=== PATIENT | female | born 1945 | race Caucasian/White ===

== ENCOUNTER → 2025-06-14 10:18 | Outpatient (CLI) | payer MEDICARE, MEDICAID, SELFPAY ==
--- NOTE | 2025-06-14 10:27 | DI.ECHO.S_ITS ---
[facility] : : [id number] : : [place] : : [id number] : : Phone: [phone] Echocardiogram Report + + :Name: BEBETO FRANCE Study Date: 06/14/2025 Height: 61 in : :[facility] ReadingLocation: Weight: 170 lb : : Gender: Female BSA: 1.8 m2 : :: 1945 Age: 80 yrs BP: 107/78 mmHg: :Reason For Study: LOZANO : :Ordering Physician: ABIGAIL, : :FATOU Performed By: Homer Chris : :Referring: FATOU HAYES : + + Interpretation Summary Afib with variable rate 98-116 bpm. Normal LV size and wall thickness; global hypokinesis. EF is 40-45%. Moderate LA enlargement and mild RA enlargement. MV is s/p mitral clip. Moderate mitral regurgitation. Compared to prior echo at [facility] 08/19/2025 no changes have occurred. Procedure: A two-dimensional transthoracic echocardiogram with color flow and Doppler was performed. The study quality was technically adequate. There is no prior echocardiogram noted for this patient. The heart rate ranged between 98-116 bpm during the study. Left Ventricle: The left ventricle is normal in size. Left ventricular wall thickness is mildly increased. Beat to beat variability due to arrhythmia. The ejection fraction is estimated to be 40-45%. Diastolic function is indeterminate. Right Ventricle: The right ventricle is mildly dilated. Right ventricular systolic function is mildly reduced. Atria: The left atrium is moderately dilated. The right atrium is mildly dilated. There is no Doppler evidence for an interatrial shunt. Mitral Valve: There is mild mitral annular calcification. MV Clip present with a mean gradient documented of 4.02 mmHg at a heart rate of 99 BPM. There is moderate mitral regurgitation. Aortic Valve: The aortic valve is trileaflet. The aortic valve opens well. There is mild aortic valve sclerosis. There is no hemodynamically significant valvular aortic stenosis. No aortic regurgitation is present. Tricuspid Valve: The tricuspid valve is not well visualized, but is grossly normal. There is trace tricuspid regurgitation. Pulmonary artery pressures cannot be estimated because of the lack of a measurable TR jet velocity but the IVC suggests a CVP of around 3 mmHg. Pulmonic Valve: The pulmonic valve is not well seen, but is grossly normal. There is mild to moderate pulmonic regurgitation. Great Vessels: The aortic root is normal size. Ascending aorta was not well visualized. The IVC is of normal diameter and collapses greater than 50% with a sniff. This suggests a low right atrial pressure of 3 mm Hg. Pericardium/ Pleura There is no pericardial effusion. MMode/2D Measurements & Calculations LVIDd: 4.6 cm LVOT diam: 1.9 cm LVIDs: 3.2 cm Ao root diam: 3.1 cm FS: 29.0 % IVSd: 1.0 cm LVPWd: 1.0 cm LV mcneill. diameter/BSA (cm/m^2): 2.6 LV sys. diameter/BSA (cm/m^2): 1.8 LA A2 area: 27.2 cm2 RA long axis: 5.9 cm LA A4 area: 24.7 cm2 RA area: 22.1 cm2 LA length (vol): 6.7 cm RA vol: 69.8 ml LA vol: 85.3 ml RA : 39.6 ml/m2 LA vol index: 48.4 ml/m2 IVC diam: 1.8 cm RVD1 (basal): 4.2 cm RVD2 (mid): 3.6 cm TAPSE: 1.2 cm Doppler Measurements & Calculations Ao V2 max: 115.3 cm/sec LVOT Max Terry: 78.3 cm/sec Ao V2 mean: 91.6 cm/sec LV V1 max P.5 mmHg Ao max P.3 mmHg LV V1 VTI: 14.7 cm Ao mean P.6 mmHg GEORGINA(I,D): 2.3 cm2 Ao V2 VTI: 18.3 cm GEORGINA(V,D): 1.9 cm2 sev ratio: 0.80 GEORGINA indexed to BSA (cm^2/m^2): 1.3 MV E max terry: 120.0 cm/sec MV V2 mean: 90.7 cm/sec MV dec time: 0.18 sec MV mean P.0 mmHg MVA(VTI): 1.6 cm2 MV V2 VTI: 26.9 cm MR VTI: 155.9 cm SV(LVOT): 41.9 ml Electronically signed by: Fatou Hayes M.D. on Reading Physician:06/17/2025 12:05 AM
[2025-06-14 12:07] LABS: Blood Urea Nitrogen 25 mg/dL (7-17); Calcium 10.3 mg/dL (8.4-10.2); Carbon Dioxide 32 mmol/L (22-32); Chloride 98 mmol/L (98-107); Estimated Glomerular Filt Rate > 60 mL/min (>60); Glucose 111 mg/dL (70-99); HEMOLYSIS < 15 (0-50); Potassium 5.2 mmol/L (3.4-5.1); Sodium 140 mmol/L (137-145)
== END ==
PROVIDERS: PCP Family Medicine; Referring Provider Internal Medicine; Visit Provider Internal Medicine
DX: R06.09 Other forms of dyspnea (principal); I42.9 Cardiomyopathy, unspecified; R06.02 Shortness of breath; I48.91 Unspecified atrial fibrillation; I34.0 Nonrheumatic mitral (valve) insufficiency
CPT/HCPCS: 36415; 80048; 93306